=== PATIENT | female | born 2000 | race Caucasian/White ===

== ENCOUNTER 2020-12-19 08:16 | Emergency (ER) | payer OTHER ==
[~2020-12-19] VITALS: Ht 167.6 cm; Wt 91.7 kg
[2020-12-19] MEDS ORDERED: SODIUM CHLORIDE FLUSH 10ML SYR IVF ONE (09:00)
--- NOTE | 2020-12-19 09:03 | NUR ---
LAB IN TO DRAW.
--- NOTE | 2020-12-19 09:15 | NUR ---
PT DENIES ABD PAIN AT THIS TIME. PT AWARE OF NEED FOR UA. PT NAUSEATED AND DIZZY FOLLOWING LAB DRAW (PER PT-NORMAL RESPONSE WITH NEEDLE STICK). CALL LIGHT WITHIN REACH. HOLD ON IV SL AT THIS TIME.
[2020-12-19 09:28] LABS: ALANINE AMINOTRANSFERASE 29 U/L (12-78); ALBUMIN 3.6 g/dL (3.4-5.0); ANION GAP 7 mmol/L (5-15); BASOPHILS % (AUTO) 0 % (0-1); CALCIUM 8.9 mg/dL (8.5-10.1); CHLORIDE 106 mmol/L (98-107); EOSINOPHILS % (AUTO) 1 % (1-7); LYMPHOCYTES % (AUTO) 33 % (22-44); MEAN CORPUSCULAR HEMOGLOBIN 28.8 pg (27.0-34.8); MEAN CORPUSCULAR HGB CONC 33.6 g/dL (32.4-35.8); MEAN PLATELET VOLUME 10.4 fL (7.4-10.4); MONOCYTES % (AUTO) 7 % (2-9); NEUTROPHILS % (AUTO) 59 % (42-75); PLATELET COUNT 213 x10^3/uL (130-400); RED BLOOD COUNT 5.04 x10^6/uL (3.82-5.3); RED CELL DISTRIBUTION WIDTH 13.9 % (9.6-15.2)
[2020-12-19 09:30] LABS: MD NO
--- NOTE | 2020-12-19 09:33 | NUR ---
URINE COLLECTED/SENT TO LAB.
[2020-12-19 09:34] LABS: ALKALINE PHOSPHATASE 140 U/L (45-117); BILIRUBIN,TOTAL 0.3 mg/dL (0.2-1.0); CREATININE 0.78 mg/dL (0.55-1.02); TOTAL PROTEIN 7.7 g/dL (6.4-8.2)
[2020-12-19] MEDS ORDERED: OMEP-110 PO (09:34)
[2020-12-19 09:45] LABS: MICROSCOPIC NOT IND
--- NOTE | 2020-12-19 09:51 | NUR ---
MEDIC STUDENT IN TO PLACE IV.
--- NOTE | 2020-12-19 09:55 | NUR ---
IV PLACED, PT READY FOR CT.
--- NOTE | 2020-12-19 10:13 | NUR ---
PT TO CT
[2020-12-19] MEDS ORDERED: OMNIPAQUE 350 MG/ML, 100ML BOTTLE ONE (10:53)
--- NOTE | 2020-12-19 11:06 | NUR ---
CT RESULTS BACK, CALL OUT BY ERP TO NEUROSURGEON
--- NOTE | 2020-12-19 11:31 | NUR ---
ADD ON LABWORK. PT UPDATED ON POC.
[2020-12-19 13:00] VITALS: BP 121/68
== END 2020-12-19 13:02 | disposition home or self-care (01) ==
LOC: ED 10:52
DX: R10.12 Left upper quadrant pain (principal)
CPT/HCPCS: 36415; 74177; 80053; 81003; 83690; 84703; 85025; 85651; 86140; 99285; Q9967

== ENCOUNTER 2020-12-28 10:33 | Emergency (ER) | payer OTHER ==
[~2020-12-28] VITALS: Ht 167.6 cm; Wt 91.9 kg
[~2020-12-28 10:33] MED LIST: OMEP-110 PO
--- NOTE | 2020-12-28 10:50 | NUR ---
PT AMBULATED TO ROOM FROM TRIAGE. PT CO LUQ PAIN. 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 SHE WAS GIVEN ABX FOR POSSIBLE FLUID COLLECTION BELOW SHUNT. PT STATED THAT SHE FINISHED COURSE OF ABX BUT STILL IS HAVING SOME PAIN. PT DENIES ANY HEADACHE, NECK PAIN, FEVER, N/V/D.
[2020-12-28 11:33] LABS: BASOPHILS % (AUTO) 1 % (0-1); EOSINOPHILS % (AUTO) 1 % (1-7); LYMPHOCYTES % (AUTO) 26 % (22-44); MEAN CORPUSCULAR HEMOGLOBIN 28.4 pg (27.0-34.8); MEAN CORPUSCULAR HGB CONC 33.3 g/dL (32.4-35.8); MEAN PLATELET VOLUME 10.1 fL (7.4-10.4); MONOCYTES % (AUTO) 7 % (2-9); NEUTROPHILS % (AUTO) 66 % (42-75); PLATELET COUNT 243 x10^3/uL (130-400); RED BLOOD COUNT 5.05 x10^6/uL (3.82-5.3)
[2020-12-28 11:36] LABS: ALANINE AMINOTRANSFERASE 27 U/L (12-78); ALBUMIN 3.5 g/dL (3.4-5.0); ANION GAP 9 mmol/L (5-15); CALCIUM 8.9 mg/dL (8.5-10.1); CHLORIDE 110 mmol/L (98-107)
[2020-12-28 11:38] LABS: ALKALINE PHOSPHATASE 141 U/L (45-117); BILIRUBIN,TOTAL 0.4 mg/dL (0.2-1.0); TOTAL PROTEIN 7.8 g/dL (6.4-8.2)
--- NOTE | 2020-12-28 12:00 | NUR ---
PT RESTING IN [place] COMFORTABLY. CALL LIGHT WITHIN REACH.
[2020-12-28 12:10] VITALS: BP 122/68
--- NOTE | 2020-12-28 12:25 | NUR ---
DR MONROE AT BEDSIDE
--- NOTE | 2020-12-28 13:21 | NUR ---
DISCHARGE INSTRUCTIONS REVIEWED WITH PT. ALL QUESTIONS ANSWERED AT THIS TIME.
== END 2020-12-28 13:23 | disposition home or self-care (01) ==
LOC: ED 11:51
DX: R10.12 Left upper quadrant pain (principal); R19.7 Diarrhea, unspecified
CPT/HCPCS: 36415; 74021; 80053; 84145; 85025; 99284